=== PATIENT | male | born 2000 | race Caucasian/White ===

== ENCOUNTER 2022-05-21 19:18 | Emergency (ER) | payer MEDICAID, SELFPAY ==
[2022-05-21 19:38] VITALS: BP 135/70; PULSE 64; RESP 16; TEMP 37.5; O2SAT 96
--- NOTE | 2022-05-21 20:20 | ED.GENADULT ---
HPI - General Adult General Date Seen: 05/21/22 Chief complaint: Unspecified Complaint, Adult Stated complaint: Toe feels tingly and cold/Pale Time Seen by Provider: 05/21/22 20:07 Source: patient and other (Friend) Mode of arrival: ambulatory Limitations: no limitations History of Present Illness HPI narrative: Patient is a very nice 22-year-old gentleman who presents here with left 3rd toe whiteness, it went pale approximately an hour ago, and lasted for approximately 5 minutes it was not associated with any pain, any redness afterwards or turning blue. There is no wrap around his toe, this caused him very much anxiety so he came to the emergency room he says now he feels better and there is no evidence of any issue with his toes, he just wants to make sure that he has no other significant issues. He denies using alcohol or IV or illicit drug drugs, no other history of any medical problems other than anxiety which she takes Zoloft for. No family history of any peripheral arterial disease, collagen vascular diseases, Review of Systems Status of ROS: Reports: 10 or more systems reviewed and unremarkable except as noted in History and below Exam Narrative: Exam Narrative: On examination is toes are normal bilaterally, long toenails and some on co grateful Titan[employer] noted on his great toe on his left foot. There is good cap refill no pain he has good movement, DP and posterior tibial pulses are normal, there is no evidence of any sensory abnormality, no evidence of any injury, bruising, or other issue. Const: Vital Signs, click to edit/add: Vital Signs - 24 hr 05/21/22 19:38 Temperature 99.5 F Pulse Rate [Left P ulse Oximeter] 64 Respiratory Rate 16 Blood Pressure [Ri ght Upper Arm] 135/70 Pulse Oximetry 96 Oxygen Delivery Me thod Room Air Documenting provider has reviewed patient's vital signs: yes Course Course Hospital Course: I discussed with him that this could be a bit of Raynaud's phenomenon, could also be anxiety causing the issue, I do not think it was a hair tourniquet your related to any drugs or alcohol. I reassured him, should follow-up with primary care physician, he was quite happy with this. Vital Signs Vital signs: Initial Vital Signs Temperature 99.5 F 05/21/22 19:38 Temperature Source Temporal Artery Scan 05/21/22 19:38 Pulse Rate 64 05/21/22 19:38 Pulse Rhythm Regular 05/21/22 19:38 Respiratory Rate 16 05/21/22 19:38 Blood Pressure 135/70 05/21/22 19:38 Blood Pressure Mean 91 05/21/22 19:38 Blood Pressure Position Sitting 05/21/22 19:38 Pulse Oximetry 96 05/21/22 19:38 Oxygen Delivery Method Room Air 05/21/22 19:38 Vital Signs Temperature 99.5 F 05/21/22 19:38 Pulse Rate 64 05/21/22 19:38 Respiratory Rate 16 05/21/22 19:38 Blood Pressure 135/70 05/21/22 19:38 Pulse Oximetry 96 05/21/22 19:38 Oxygen Delivery Method Room Air 05/21/22 19:38 Temperature 99.5 F 05/21/22 19:38 Pulse Rate 64 05/21/22 19:38 Respiratory Rate 16 05/21/22 19:38 Blood Pressure 135/70 05/21/22 19:38 Pulse Oximetry 96 05/21/22 19:38 Oxygen Delivery Method Room Air 05/21/22 19:38 Discharge Plan Discharge Clinical Impression: Raynaud's phenomenon Patient Disposition: Home w/ Parent or Adult Condition: Stable Additional Instructions: Like I said this is a benign thing, I can happen again like it did, or will turn white, and then go back to normal. Not related to disease, or anything else. [employer] in [place]. You would be a star with them based on your experience Stand Alone Forms: [facility] Info Instructions
== END 2022-05-21 20:27 | disposition home or self-care (01) ==
LOC: ED 20:23
PROVIDERS: Emergency Provider Family Medicine
DX: I73.00 Raynaud's syndrome without gangrene (principal)
CPT/HCPCS: 99282; 99283